=== PATIENT | male | born 2000 ===

== ENCOUNTER 2023-05-14 20:53 | Emergency (ER) | payer OTHER, SELFPAY ==
[2023-05-14 20:58] VITALS: BP 127/77
[2023-05-14 21:15] LABS: % Basophils 0.3 % (0-2); % Eosinophils 0.1 % (0-6); % Immature Granulocytes 0.4 % (0-0.5); % Lymphocytes 12.2 % (20.5-51.1); % Monocytes 7.2 % (1.7-9.3); % Neutrophils 79.8 % (42.2-75.2); Absolute Lymphocytes 0.8 10^3/uL (1.2-3.4); Absolute Monocytes 0.5 10^3/uL (0.1-0.6); Absolute Neutrophils 5.4 10^3/uL (1.4-6.5); Hematocrit 42.4 % (39.0-52.0); Hemoglobin 15.6 g/dL (13.0-18.0); Mean Corp Hgb Conc. 36.8 g/dL (33.0-37.0); Mean Corpuscular Hgb 31.1 pg (27.0-31.0); Mean Corpuscular Volume 84.5 fL (80.0-94.0); Mean Platelet Volume 10.9 fL (7.4-10.4); Nucleated Red Blood Cells % 0 % (-); Platelet Count 237 10^3/uL (130-400); Red Blood Cell Count 5.02 10^6/uL (4.70-6.10); Red Cell Dist. Width 12.1 % (11.5-14.5); White Blood Cell Count 6.8 10^3/uL (4.8-10.8)
[2023-05-14 21:28] LABS: ALT (SGPT) 19 U/L (0-50); AST (SGOT) 28 U/L (17-59); Albumin 3.6 g/dl (3.5-5.0); Alkaline Phosphatase 70 U/L (38-126); Blood Urea Nitrogen 10 mg/dl (9-20); Calcium 8.2 mg/dl (8.4-10.2); Carbon Dioxide 27 mmol/L (22-30); Chloride 102 mmol/L (98-107); Glucose 99 mg/dl (70-99); Lactic Acid 1.1 mmol/L (0.7-2.0); Lipase 48 U/L (23-300); Potassium 3.4 mmol/L (3.5-5.1); Sodium 133 mmol/L (135-145); Total Bilirubin 0.8 mg/dl (0.2-1.3); Total Protein 6.2 g/dl (6.3-8.2); eGFR > 60.00
--- NOTE | 2023-05-14 22:44 | ED.GENMED ---
History of Present Illness
<RONY House - Last Filed: 05/15/23 02:13>
General
Chief Complaint: Abdominal Symptoms
Source: patient
Exam Limitations: none
Time Seen by Provider: 05/14/23 22:44
Nursing documentation reviewed up to this point in time: agreed with
Travel History
Have you had any contact with someone who has COVID-19?: No
Do you have any symptoms of coronavirus? Fever > 100 degrees, chills, cough, shortness of breath, sore throat, loss of taste or smell, muscle aches, or headache?: No
History of Present Illness
History of Present Illness:
This is a 22 year old male, with no significant PMH, who reports to the ED c/o bloody diarrhea x 1 day. Pt states he has had abdominal pain, diarrhea and vomiting for the past 3 days. He denies any changes to his diet or the consumption of any new
foods and states he had steak and eggs the night before his symptoms began. [facility] ago and was tested for the Flu, COVID, strep, UTIs, and diabetes, which was all negative. He has also been congested and had a
cough since last week when he had a cold. Pt notes he vomited twice this morning and has had 4-5 episodes of bright red watery diarrhea today. He adds that he has also had back pain since his symptoms started 3 days ago. He took tylenol and zofran
around 7 am this morning and tried to eat some [employer] for lunch, which he was able to keep down. Pt denies any fever, SOB, sore throat, dysuria, hematuria, hematemesis, or nausea.
Past History
<RONY House - Last Filed: 05/15/23 02:13>
Past History
ED Past Medical History: None
ED Past Surgical History: None; Negative Appendectomy or Cholecystectomy
Social History
Tobacco: Vaping
Alcohol: Occasional
Drug: Marijuana (medical for anxiety)
Living: with family
Review of Systems
<RONY House - Last Filed: 05/15/23 02:13>
Review of Systems
Allergies reviewed?: Yes
All Other Systems: ROS reviewed and negative except as documented in HPI and ROS
Constitutional: Reports no symptoms; Denies fever or chills
EENT: Reports other (congestion); Denies sore throat
Respiratory: Reports cough; Denies trouble breathing
Cardiac: Reports chest pain (with coughing)
ABD/GI: Reports abdominal pain, vomiting, diarrhea and bloody stools; Denies nausea or constipated
: Reports no symptoms; Denies dysuria or bleeding
Musculoskeletal: Reports no symptoms
Skin: Reports no symptoms
Neurological: Reports no symptoms
Psychiatric: Reports no symptoms
Phy Exam
<RONY House - Last Filed: 05/15/23 02:13>
General Physical Exam
General Presentation: no apparent distress
General age: appears stated age
General Skin: warm and dry
General Habitus: normal
General Mental: alert
General Hydration: dry mucous membranes
ENT Exam
ENT Exam: neck supple, normocephalic and swallowing well
Cardiovascular Exam
Cardiovascular Exam: regular rate/rhythm, no edema, no murmur and normal peripheral pulses
Pulmonary Exam
Pulmonary Exam: lungs clear, no respiratory distress, no rales, no crackles, no rhonchi and no wheezing
Gastrointestinal Exam
Gastrointestinal Exam: non tender, soft, non distended, abnormal bowel sounds (hyperactive) and other (no guarding, rebound, rigidity, or McBurney's point tenderness)
Rectal Exam: normal sphincter tone, no rectal mass, no stool and other (erythema along perianal area. no masses, fissures, or lumps noted on exam)
Stool: red
Guaiac Status: positive
Neurological Exam
Neurological Exam: alert and oriented x3
Musculoskeletal Exam
Musculoskeletal Exam: full ROM and no edema
Skin Exam
Skin Exam: normal color and warm/dry
Psychiatric Exam
Psychiatric Exam: normal mood/affect
Course
<Sarabjit FaithRONY - Last Filed: 05/15/23 02:13>
Orders/Labs/Results
Orders:
Orders
05/14/23 21:07
Complete Blood Count/With Diff Urgent
Comprehensive Metabolic Panel Urgent
Lactic Acid Urgent
Lipase Urgent
05/14/23 23:19
0.9% Sodium Chloride 1000 ml [Nss] 1,000 ml IV BOLUS
Iohexol [Omnipaque] See Protocol PO NOW STA
05/15/23 00:59
Ondansetron Injectable [Zofran] 4 mg .ROUTE .STK-MED ONE
05/15/23 01:01
Ondansetron Injectable [Zofran] 4 mg IV NOW STA
05/15/23 01:45
CT Abd/pel W Iv And Oral Contr Urgent
Reason For Exam: N/V/D x 3 days, now bloody diarrhea
05/15/23 02:07
C difficile Antigen & Toxins Urgent
APOLINAR Source: Feces/Stool
Specimen Description:
Date Specimen was Collected: 05/15/23
Time Specimen was Collected: 02:04
Stool Culture Urgent
APOLINAR Source: Feces/Stool
Specimen Description:
Date Specimen was Collected: 05/15/23
Time Specimen was Collected: 02:04
05/15/23 03:08
Ciprofloxacin HCl [Cipro] 500 mg PO NOW STA
05/15/23 03:19
Potassium Chloride [KCl] 20 meq .ROUTE .STK-MED ONE
05/15/23 03:20
Potassium Chloride [KCl] 20 meq PO NOW STA
Abnormal Lab Results
05/14/23
21:07
MCH 31.1 H pg
(27.0-31.0)
MPV 10.9 H fL
(7.4-10.4)
Absolute Lymphs (auto) 0.8 L 10^3/uL
(1.2-3.4)
Neutrophils % 79.8 H %
(42.2-75.2)
Lymphocytes % 12.2 L %
(20.5-51.1)
Sodium 133 L mmol/L
(135-145)
Potassium 3.4 L mmol/L
(3.5-5.1)
Calcium 8.2 L mg/dl
(8.4-10.2)
Total Protein 6.2 L g/dl
(6.3-8.2)
05/14/23 21:07
05/14/23 21:07
Vital Signs
Initial and Last Documented VS:
Initial Vital Signs
Temp Pulse Resp BP Pulse Ox
98.3 F 104 20 127/77 99
05/14/23 20:58 05/14/23 20:58 05/14/23 20:58 05/14/23 20:58 05/14/23 20:58
Last Documented Vital Signs
Temp Pulse Resp BP Pulse Ox
98.3 F 81 14 115/72 99
05/14/23 20:58 05/15/23 03:25 05/15/23 03:25 05/15/23 03:25 05/15/23 02:23
<Dimple Faust, DO - Last Filed: 05/15/23 04:42>
Orders/Labs/Results
Orders:
Orders
05/14/23 21:07
Complete Blood Count/With Diff Urgent
Comprehensive Metabolic Panel Urgent
Lactic Acid Urgent
Lipase Urgent
05/14/23 23:19
0.9% Sodium Chloride 1000 ml [Nss] 1,000 ml IV BOLUS
Iohexol [Omnipaque] See Protocol PO NOW STA
05/15/23 00:59
Ondansetron Injectable [Zofran] 4 mg .ROUTE .STK-MED ONE
05/15/23 01:01
Ondansetron Injectable [Zofran] 4 mg IV NOW STA
05/15/23 01:45
CT Abd/pel W Iv And Oral Contr Urgent
Reason For Exam: N/V/D x 3 days, now bloody diarrhea
05/15/23 02:07
C difficile Antigen & Toxins Urgent
APOLINAR Source: Feces/Stool
Specimen Description:
Date Specimen was Collected: 05/15/23
Time Specimen was Collected: 02:04
Stool Culture Urgent
APOLINAR Source: Feces/Stool
Specimen Description:
Date Specimen was Collected: 05/15/23
Time Specimen was Collected: 02:04
05/15/23 03:08
Ciprofloxacin HCl [Cipro] 500 mg PO NOW STA
05/15/23 03:19
Potassium Chloride [KCl] 20 meq .ROUTE .STK-MED ONE
05/15/23 03:20
Potassium Chloride [KCl] 20 meq PO NOW STA
Abnormal Lab Results
05/14/23
21:07
MCH 31.1 H pg
(27.0-31.0)
MPV 10.9 H fL
(7.4-10.4)
Absolute Lymphs (auto) 0.8 L 10^3/uL
(1.2-3.4)
Neutrophils % 79.8 H %
(42.2-75.2)
Lymphocytes % 12.2 L %
(20.5-51.1)
Sodium 133 L mmol/L
(135-145)
Potassium 3.4 L mmol/L
(3.5-5.1)
Calcium 8.2 L mg/dl
(8.4-10.2)
Total Protein 6.2 L g/dl
(6.3-8.2)
05/14/23 21:07
05/14/23 21:07
Vital Signs
Initial and Last Documented VS:
Initial Vital Signs
Temp Pulse Resp BP Pulse Ox
98.3 F 104 20 127/77 99
05/14/23 20:58 05/14/23 20:58 05/14/23 20:58 05/14/23 20:58 05/14/23 20:58
Last Documented Vital Signs
Temp Pulse Resp BP Pulse Ox
98.3 F 81 14 115/72 99
05/14/23 20:58 05/15/23 03:25 05/15/23 03:25 05/15/23 03:25 05/15/23 02:23
<Dimple Faust DO - Last Filed: 05/15/23 04:42>
*Radiology
Radiology exam reviewed: radiology read reviewed
*Pulse Oximetry
Patient hypoxic: no
*Box Truck Owner Operator Interpretation
Rate: normal
Interpretation: normal
Rhythm: sinus
*Critical Care Note
Total Time (30-74mins, 75-104mins- exclusive of procedures): Not Applicable
ED Attending Note
<RONY House - Last Filed: 05/15/23 02:13>
-
Portions of this chart may have been created with voice recognition software.� Occasional wrong word or��sound alike� substitutions may have occurred due to the inherent limitations of voice recognition software.
<Dimple Faust DO - Last Filed: 05/15/23 04:42>
ED Attending Note
Patient seen and examined by attending physician: Yes
I performed the substantive portion of visit, reviewed & personally made and approve the management plan that is documented in note by myself or STERLING.: Yes
I performed a history and physical exam of patient and discussed management with resident, I reviewed resident's note and agree with documented findings and plan of care.: Yes
ED Attending Note:
This is a 22-year-old gentleman who has no significant past medical history complains of 3-day history of mild intermittent abdominal discomfort associated with nausea, vomiting, diarrhea. He had intermittent chills and was noted to have low-grade
fever during evaluation of urgent care 2 days ago. During that evaluation he reports negative flu, COVID, strep testing and urine dip was reportedly unremarkable. He was prescribed Zofran for gastroenteritis. He has had continued intermittent
nausea, vomiting, diarrhea but admits to eating a [employer] hamburger and fries for dinner tonight and has been intermittently drinking fluids.
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 He has had occasional loose nonbloody stools today as well.
No close contacts with similar symptoms. No history of similar episodes in the past.
No recent travel nor recent antibiotic use.
The night prior to onset of symptoms patient and his girlfriend ate out at a restaurant and ate similar foods save for he consumed steak as well as eggs.
He takes no medicines on a daily basis but is maintained on medical marijuana. He also vapes tobacco. Rare alcohol use.
He denies aspirin or NSAID use.
No known family history of inflammatory bowel disease.
GENERAL: 22-year-old male appears his stated age, awake and alert, appears in no acute distress. Afebrile.
EYE: anicteric
NECK: Supple, nontender, no meningismus, no significant adenopathy.
ENT: Lips are mildly dry, oral mucosa is minimally dry. No rhinorrhea.
CARDIAC: Regular rate and rhythm. no murmur.
LUNGS: Clear breath sounds bilaterally, no acute respiratory distress, no wheezes/rales/rhonchi
ABDOMEN: Soft, nondistended, without focal tenderness, no palpable masses, no r/g, no cvat. normoactive BS. There is very mild perianal erythema but no evidence of anal fissure nor external hemorrhoids. Rectal exam by PA student reveals scant
blood on gloved finger that is heme positive.
NEUROLOGICAL: Alert and oriented x3, no focal neuro deficits. Gait is steady.
SKIN: Warm and dry, normal color, skin intact. No rash.
MUSCULOSKELETAL: No C/C/E. peripheral pulses are full and equal b/l. No palpable tenderness.
PSYCH: Normal and appropriate interaction.
Concern for acute infectious enterocolitis versus acute inflammatory bowel disease. Other consideration is internal hemorrhoid, AVM. Less likely colonic mass, diverticular bleed.
Hemodynamically stable but clinically patient appears at least mildly dehydrated.
Will initiate IV fluids.
Labs are reassuring.
Will plan for CT abdomen pelvis with oral and IV contrast.
Will plan to collect stool and send for stool cultures, stool for C. difficile.
05/15/2023 0314 AM
Patient continues to appear comfortable.
He has passed 1 small nonbloody watery stool. Stool sample obtained and has been sent for stool cultures.
CT abdomen pelvis is unremarkable.
Due to bloody diarrhea must consider infectious/bacterial etiology for gastroenteritis thus we will treat with a 5-day course of Cipro.
Recommend he limit his diet to clear liquids, soft bland foods. Brat diet discussed.
Will refer to GI for follow-up.
Return precautions discussed.
Discharge Plan
Departure
Patient Disposition: Home (Routine Discharge)
Date of Disposition: 05/15/23
Time of Disposition: 03:09
Patient with high blood pressure during this ER visit?: No
Condition: Good
Discharge Problem:
Acute gastroenteritis, Bloody diarrhea
Instructions: Diarrhea in adolescents and adults, Clear Liquid Diet, Bloody Stools, Adult (DC)
Prescriptions:
New
ciprofloxacin HCl [Cipro] 500 mg tablet
500 mg PO BID Qty: 10 0RF
Referrals:
Nicole Pisano MD [Active] - Call in 1-3 days for appt
UNKNOWN - PT DOES,NOT KNOW [Unknown Provider] -
Interventions
Interventions:
*Risk Screen - Suicide Last Done: 05/14/23 20:58
*General Assessment Last Done: 05/14/23 20:58
*Neglect/Abuse Screening Last Done: 05/15/23 01:10
*ED COVID-19 Vaccine History Last Done: 05/15/23 01:10
*Nursing Disposition Last Done: 05/15/23 03:38
HK-Ekvgek-Hdoavsjzjl Assessment Last Done: 05/14/23 22:54
Discharge Date and Time
Discharge Date/Time: 05/15/23 03:38
[2023-05-14 22:52] VITALS: BP 121/64
[2023-05-14] MEDS: OMNIPAQUE 50 ML PO (23:55)
[2023-05-15 00:08] VITALS: BP 98/64
[2023-05-15] MEDS: NSS 1000 IV (01:04)
[2023-05-15 02:23] VITALS: BP 128/73
[2023-05-15] MEDS: KCL 20 MEQ PO (03:21)
[2023-05-15] MEDS: CIPRO 500 MG PO (03:21)
[2023-05-15 03:25] VITALS: BP 115/72
== END 2023-05-15 03:38 | disposition home or self-care (01) ==
LOC: EMR 20:53
PROVIDERS: Emergency Medicine; EMERGENCY PHYSICIAN Emergency Medicine; FAMILY PHYSICIAN Internal Medicine
DX: K52.9 Noninfective gastroenteritis and colitis, unspecified (principal); K92.1 Melena; F17.290 Nicotine dependence, other tobacco product, uncomplicated; Z90.49 Acquired absence of other specified parts of digestive tract
CPT/HCPCS: 99284; 74177; 80053; 83605; 83690; 85025; 87045; 87046; 87324; 87427; 87449; Q9967

== ENCOUNTER 2024-01-08 21:31 | Emergency (ER) | payer OTHER, SELFPAY ==
[2024-01-08 21:33] VITALS: BP 119/80
[2024-01-08 22:34] VITALS: BMI 20.5
[2024-01-08 22:35] VITALS: BP 125/79
[2024-01-08 22:54] LABS: % Basophils 0.7 % (0-2); % Eosinophils 5.7 % (0-6); % Immature Granulocytes 0.2 % (0-0.5); % Lymphocytes 15.1 % (20.5-51.1); % Monocytes 5.1 % (1.7-9.3); % Neutrophils 73.2 % (42.2-75.2); Absolute Basophils 0.1 10^3/uL (0-0.2); Absolute Eosinophils 0.6 10^3/uL (0-0.7); Absolute Lymphocytes 1.6 10^3/uL (1.2-3.4); Absolute Monocytes 0.5 10^3/uL (0.1-0.6); Absolute Neutrophils 7.6 10^3/uL (1.4-6.5); Hematocrit 41.6 % (39.0-52.0); Hemoglobin 15.3 g/dL (13.0-18.0); Mean Corp Hgb Conc. 36.8 g/dL (33.0-37.0); Mean Corpuscular Hgb 29.5 pg (27.0-31.0); Mean Corpuscular Volume 80.2 fL (80.0-94.0); Mean Platelet Volume 10.8 fL (7.4-10.4); Nucleated Red Blood Cells % 0 % (-); Platelet Count 286 10^3/uL (130-400); Red Blood Cell Count 5.19 10^6/uL (4.70-6.10); Red Cell Dist. Width 12.2 % (11.5-14.5); White Blood Cell Count 10.4 10^3/uL (4.8-10.8)
[2024-01-08 23:14] LABS: COVID-19 Antigen Negative (Negative)
[2024-01-08 23:16] LABS: ALT (SGPT) 27 U/L (0-50); AST (SGOT) 23 U/L (17-59); Albumin 4.5 g/dl (3.5-5.0); Alkaline Phosphatase 72 U/L (38-126); Blood Urea Nitrogen 14 mg/dl (9-20); Calcium 9.5 mg/dl (8.4-10.2); Carbon Dioxide 27 mmol/L (22-30); Chloride 103 mmol/L (98-107); Estimated Creatinine Clearance 121 ml/min; Glucose 122 mg/dl (70-99); Sodium 145 mmol/L (135-145); Total Bilirubin 0.9 mg/dl (0.2-1.3); Total Protein 7.4 g/dl (6.3-8.2); eGFR > 60.00
[2024-01-08 23:18] VITALS: BP 124/73
--- NOTE | 2024-01-08 23:37 | ED.GENMED ---
History of Present Illness
General
Chief Complaint: Cold/Flu/URI Symptoms
Time Seen by Provider: 01/08/24 22:25
History of Present Illness
History of Present Illness:
23-year-old male without significant past medical history presenting for cough and congestion. Patient reports for the past 4 days he has been having congestion, cough, chills. He notes that he has been having a lot of discharge from the nose,
nasal congestion. Cough has been nonproductive. He denies chest pain or difficulty breathing. He denies abdominal pain, however did have an episode of vomiting today. Denies known sick contacts. Reports history of asthma in the past, however
not active. Denies additional acute medical complaints.
Past History
Past History
ED Past Medical History: None
ED Past Surgical History: None; Negative Appendectomy or Cholecystectomy
Social History
Tobacco: Vaping
Alcohol: Occasional
Drug: Marijuana (medical for anxiety)
Living: with family
Phy Exam
Physical Exam
Physical Exam:
General: Well-appearing, no clinical signs of dehydration, nontoxic and in no acute distress
HEENT: protecting airway
Neck: appears supple
CV: Normal heart rate, regular rhythm, no evidence of cyanosis
Resp: No accessory muscle use, no increased work of breathing, lungs clear to auscultation bilaterally
Abd: Soft and non-distended, no tenderness to palpation
Extremities: No deformities, no swelling
Neuro: alert, no focal neurologic deficit
: deferred
Rectal: deferred
Psych: Normal affect
Skin: Intact
Course
Orders/Labs/Results
Orders:
Orders
01/08/24 22:45
COVID-19 Antigen Urgent
Source: Nasal Swab
Complete Blood Count/With Diff Urgent
Comprehensive Metabolic Panel Urgent
Influenza A+B Rapid Molecular Urgent
APOLINAR Source: Nasal Swab
Specimen Description:
01/08/24 22:48
CR Chest - 2 Views Urgent
Comment:
Reason For Exam: cough
Abnormal Lab Results
01/08/24
22:45
MPV 10.8 H fL
(7.4-10.4)
Absolute Neuts (auto) 7.6 H 10^3/uL
(1.4-6.5)
Lymphocytes % 15.1 L %
(20.5-51.1)
Glucose 122 H mg/dl
(70-99)
01/08/24 22:45
01/08/24 22:45
Vital Signs
Initial and Last Documented VS:
Initial Vital Signs
Temp Pulse Resp BP Pulse Ox
98.4 F 99 14 119/80 94
01/08/24 21:33 01/08/24 21:33 01/08/24 21:33 01/08/24 21:33 01/08/24 21:33
Last Documented Vital Signs
Temp Pulse Resp BP Pulse Ox
97.8 F 99 14 124/73 94
01/08/24 22:34 01/08/24 21:33 01/08/24 21:33 01/08/24 23:18 01/08/24 23:30
MDM/Problems Addressed
MDM/Problems Addressed:
23-year-old male presenting for cough and congestion for 4 days. Vital signs normal.
On exam patient is well-appearing, no acute distress. No respiratory distress. Unremarkable pulmonary exam, no increased work of breathing. No focal abnormal lung sounds. Ultimately suspect viral syndrome, possible COVID versus influenza.
Pneumonia is also consideration, lower suspicion. Will screen with chest x-ray imaging, laboratory analysis, viral swab.
23:50 - swabs are negative. Chest x-ray without acute cardiopulmonary disease. Labs are unremarkable, no leukocytosis. At this time feel stable for discharge with continued supportive therapy. Patient is a bronchitis which is a consideration.
He notes persisting cough, so will start on short course of steroids. Will also prescribe inhaler. Return precautions discussed and patient verbalized understanding
*Critical Care Note
Total Time (30-74mins, 75-104mins- exclusive of procedures): Not Applicable
ED Attending Note
-
Portions of this chart may have been created with voice recognition software.� Occasional wrong word or��sound alike� substitutions may have occurred due to the inherent limitations of voice recognition software.
Discharge Plan
Departure
Prescriptions:
No Action
ciprofloxacin HCl [Cipro] 500 mg tablet
500 mg PO BID Qty: 10 0RF
Referrals:
Tiana Galvez MD [Family Provider] -
Interventions
Interventions:
*Risk Screen - Suicide Last Done: 01/08/24 21:33
*General Assessment Last Done: 01/08/24 21:33
*Neglect/Abuse Screening Last Done: 01/08/24 21:33
ED- Fall Risk Assessment Last Done: 01/08/24 22:34
*ED COVID-19 Vaccine History Last Done: 01/08/24 22:34
ED- Pulmonary Assessment Last Done: 01/08/24 22:34
Discharge Date and Time
Print Language: ROMANIAN
[2024-01-09] VITALS: BP 127/82
== END 2024-01-09 00:36 | disposition home or self-care (01) ==
LOC: EMR 21:31
PROVIDERS: EMERGENCY PHYSICIAN Student in an Organized Health Care Education/Training Program; FAMILY PHYSICIAN Internal Medicine
DX: J20.9 Acute bronchitis, unspecified (principal); F17.290 Nicotine dependence, other tobacco product, uncomplicated; Z11.52 Encounter for screening for COVID-19
CPT/HCPCS: 99284; 71046; 80053; 85025; 87502; 87811

== ENCOUNTER 2024-04-11 20:24 | Emergency (ER) | payer OTHER, SELFPAY ==
[2024-04-11 20:25] VITALS: BP 100/71
[2024-04-11 21:07] VITALS: BMI 20.4
--- NOTE | 2024-04-11 21:11 | ED.GENMED ---
History of Present Illness
General
Chief Complaint: Skin Problem
Time Seen by Provider: 04/11/24 20:46
History of Present Illness
History of Present Illness:
23-year-old male presents to the emergency department for evaluation of redness and puslike discharge from his umbilicus. Has had this issue in the past. Denies any trauma. States that he uses a cotton swab to dry the bellybutton after showers
every day. No recent fevers or chills.
Past History
Past History
ED Past Medical History: None
ED Past Surgical History: None; Negative Appendectomy or Cholecystectomy
Social History
Tobacco: Vaping
Alcohol: Occasional
Drug: Marijuana (medical for anxiety)
Living: with family
Review of Systems
Review of Systems
Allergies reviewed?: Yes
All Other Systems: ROS reviewed and negative except as documented in HPI and ROS
Phy Exam
Physical Exam
Physical Exam:
GEN: Well appearing, NAD, WDWN
HEENT: Oral mucosa moist, no scleral icterus
Cardiac: Regular rate
Lung: No respiratory distress, no tachypnea
Abdomen: Generally soft and nontender. There is mild erythema with purulent discharge from the umbilicus. No palpable induration or fluctuant abscess
MSK: No gross deformity or injuries
Skin: Good color, no pallor or jaundice, no rashes
Neuro: AO x3, moves all extremities freely
Psych: Calm, cooperative
Course
Vital Signs
Initial and Last Documented VS:
Initial Vital Signs
Temp Pulse Resp BP Pulse Ox
99.3 F 89 18 100/71 99
04/11/24 20:25 04/11/24 20:25 04/11/24 20:25 04/11/24 20:25 04/11/24 20:25
Last Documented Vital Signs
Temp Pulse Resp BP Pulse Ox
99.3 F 89 18 100/71 99
04/11/24 20:25 04/11/24 20:25 04/11/24 20:25 04/11/24 20:25 04/11/24 20:25
MDM/Problems Addressed
MDM/Problems Addressed:
I suspect this is mild cellulitis due to excessive cleaning of the umbilical region particular given his umbilicus is quite cryptic like. Will start topical antibiotics, educated on hygiene measures
*Critical Care Note
Total Time (30-74mins, 75-104mins- exclusive of procedures): Not Applicable
ED Attending Note
-
Portions of this chart may have been created with voice recognition software.� Occasional wrong word or��sound alike� substitutions may have occurred due to the inherent limitations of voice recognition software.
Discharge Plan
Departure
Patient Disposition: Home (Routine Discharge)
Date of Disposition: 04/11/24
Time of Disposition: 21:12
Patient with high blood pressure during this ER visit?: No
Discharge Problem:
Cellulitis of umbilicus
Prescriptions:
New
mupirocin 2 % ointment
1 applic topical TID 7 Days Qty: 22 0RF
No Action
ciprofloxacin HCl [Cipro] 500 mg tablet
500 mg PO BID Qty: 10 0RF
prednisone 20 mg tablet
40 mg PO DAILY 5 Days Qty: 10 0RF
albuterol sulfate 90 mcg/actuation HFA aerosol inhaler
2 puff inhalation Q6H PRN (Reason: shortness of breath or wheezing) Qty: 8.5 0RF
Interventions
Interventions:
*Risk Screen - Suicide Last Done: 04/11/24 20:25
*General Assessment Last Done: 04/11/24 20:25
*Neglect/Abuse Screening Last Done: 04/11/24 20:25
*Nursing Disposition Last Done: 04/11/24 21:38
ED-Skin Assessment Last Done: 04/11/24 21:09
Discharge Date and Time
Discharge Date/Time: 04/11/24 21:39
Print Language: BELARUSIAN
== END 2024-04-11 21:39 | disposition home or self-care (01) ==
LOC: EMR 20:24
PROVIDERS: EMERGENCY PHYSICIAN Emergency Medicine; FAMILY PHYSICIAN Internal Medicine
DX: L03.316 Cellulitis of umbilicus (principal); F17.290 Nicotine dependence, other tobacco product, uncomplicated
CPT/HCPCS: 99283